=== PATIENT | female | born 1960 | race Asian ===

== ENCOUNTER → 2016-04-30 | Outpatient (CLI) | payer OTHER ==
--- NOTE | 2016-04-30 14:47 | RADRPT ---
PROCEDURE: Right knee radiographs. CLINICAL INDICATION: Right knee pain. TECHNIQUE: Four views. Weight bearing. Frontal, lateral, oblique, and patellar view. COMPARISON: No prior studies are available for comparison. FINDINGS: There is no fracture or dislocation. The soft tissues are normal. There are degenerative changes with medial joint compartment narrowing and osteophytes. There is no deformity. There is no lytic or blastic lesion. There is no radiopaque foreign body. IMPRESSION: 1. Moderate degenerative change. 2. No acute abnormality. RPTAT: QQ .Arcenio Castellano MD, MD Date Time Electronically viewed and signed by .Arcenio Castellano MD, MD on 04/30/2016 14:47 .R/
== END | disposition home or self-care (01) ==
LOC: HKI 13:13
PROVIDERS: ATTEND Orthopaedic Surgery
DX: M17.0 Bilateral primary osteoarthritis of knee (principal)
CPT/HCPCS: 20610; 73564; J1030; Z7500; Z7610; G0463

== ENCOUNTER → 2016-11-24 | Outpatient (CLI) | payer OTHER ==
--- NOTE | 2016-11-24 11:13 | RADRPT ---
PROCEDURE: CR Left Knee CLINICAL INDICATION: Pain TECHNIQUE: An AP, a tunnel, a lateral and a sunrise view were submitted. COMPARISON: 10/20/2015 FINDINGS: Osseous Structures: The osseous elements appear well mineralized and intact. Joint Spaces: There is been progressive narrowing of the medial femoral tibial joint space with mild degenerative spurring. There is also increased spurring off the posterior patella compatible with mild degenerative change. There is now a small joint effusion.. Soft Tissues: The soft tissues appear unremarkable. IMPRESSION: 1. Progressive no moderate osteoarthritic change involving the medial femoral tibial joint space wi th progressive mild degenerative change at the patellar femoral joint space. 2. Development of a small joint effusion. Physician Mackenzie Date Time Electronically viewed and signed by Libby Buchanan Physician on 11/24/2016 11:12 /
== END | disposition home or self-care (01) ==
LOC: HKI 09:51
PROVIDERS: ATTEND Orthopaedic Surgery
DX: M17.12 Unilateral primary osteoarthritis, left knee (principal)
CPT/HCPCS: 20610; 73564; J7327